=== PATIENT | male | born 1990 | race Caucasian/White ===

== ENCOUNTER 2022-10-23 19:14 | Emergency (ER) | payer OTHER, SELFPAY ==
[2022-10-23 19:31] VITALS: BP 154/79; PULSE 106; RESP 20; TEMP 36.9; O2SAT 98; BMI 29.0
--- NOTE | 2022-10-23 19:33 | ED_ITS ---
HPI - Back Pain/Injury General Chief Complaint: Back Pain/Injury Stated Complaint: Anterior Wedge? Time Seen by Provider: 10/23/22 19:41 Source: patient Mode of arrival: ambulatory Limitations: no limitations History of Present Illness HPI Narrative: 31yo male healthy here back injury at work 4 days ago while working. Seen at 10/23 and had x-rays which was concerning for T11/T12 anterior wedge deformity. Given prescriptions flexeril, ibuprofen, voltaren which were sent to the pharmacy but patient did not pick them up and decided to come to the emergency department. Patient reports he was informed by the urgent care provider that he needs follow-up with Occupational Health and may need to have an MRI. Patient was also given a work note as well as referral for physical therapy. Patient reports pain in the lower back. No radiation pain. No numbness or tingling. No weakness in extremities. No bowel or bladder contact sprain of fevers or chills. Patient is ambulatory. Related Data Allergies Allergy/AdvReac Type Severity Reaction Status Date / Time No Known Allergies Allergy Verified 10/23/22 19:37 Review of Systems Review of Systems: Yes all other systems are reviewed and are negative Constitutional: Constitutional: Reports no additional constitutional complaints, Denies body ache(s), Denies chills, Denies fever(s), Denies headache(s) and Denies weakness Eyes: Eyes: Reports no additional eye complaints and Denies change in vision ENT: Reports system reviewed and no additional complaints, except as docume nted, Denies dizziness, Denies headache(s), Denies nasal congestion, Denies nasal discharge and Denies neck pain Cardiovascular: Cardiovascular: Reports no additional cardiovascular complaints, Denies chest pain, Denies leg edema and Denies dyspnea Respiratory: Respiratory: Reports no additional respiratory complaints, Denies cough and Denies dyspnea Gastrointestinal: Gastrointestinal: Reports no additional gastrointestinal complaints, Denies abdominal pain, Denies diarrhea, Denies nausea and Denies vomiting Genitourinary: Genitourinary: Denies urinary incontinence Musculoskeletal: Musculoskeletal: Reports no additional musculoskeletal complaints, Reports back pain, Denies arthralgias, Denies joint swelling, Denies neck pain, Denies numbness and Denies tingling Integumentary/Breasts: Skin/Breast: Reports system reviewed and no additional complaints, except as docu and Denies rash Neurologic: Reports system reviewed and no additional complaints, except as documented, Denies Abnormal speech present, Denies dizziness, Denies headache (s), Denies numbness, Denies tingling and Denies weakness PMFSH Past Medical History Attestation statement: The following information was validated with the patient. Source: old records reviewed and nursing notes reviewed Social History Social History Advance Directives: No Advance Directives Information Provided: Yes Physical Exam Vital Signs: Vital Signs: Last Vital Signs Temp 98.5 F 10/23/22 19:31 Pulse 106 H 10/23/22 19:31 Resp 20 10/23/22 19:31 BP 154/79 H 10/23/22 19:31 Pulse Ox 98 10/23/22 19:31 O2 Del Method 10/23/22 19:31 BMI result Body Mass Index 29.0 Const: General: cooperative, healthy appearing, comfortable and no acute distress Orientation/consciousness: patient oriented x3 Limitations: no limitations HEENT: Head: Yes normal to inspection Ears: hearing grossly normal bilaterally General nose exam: Normal external nose present Face and sinus: Yes normal facial exam Mouth: Normal oral and palatal mucosa present Throat: Yes posterior oropharynx normal Eyes: General: appearance normal, both eyes and all related structures Pupils: Equal, round and reactive pupils present Neck: Neck: Yes normal visual inspection Chest: Chest palpation & inspection: normal inspection of the chest Resp: Effort & Inspection: normal respiratory effort Auscultation: clear to auscultation bilaterally Cardio: Rate: regular rate Rhythm: regular rhythm Peripheral pulses: Peripheral pulses 2+ throughout GI: Inspection: Yes normal to inspection Palpation (GI): Soft to palpation and nontender Auscultation: normal bowel sounds Back/Spine/Pelvis: Thoracic/Lumbar Spine: thoracic and lumbar spine normal to inspection Skin: General skin exam: no rashes or lesions noted Neuro: General: patient oriented x3, no focal motor deficits and normal sensation to monofilament Cranial nerves: Yes Equal, round and reactive pupils present Cognition (Neuro): normal cognition Speech: No Abnormal speech present Gait exam (Neuro): Normal gait present Motor exam (neuro): 5/5 motor strength present throughout Extrem: General: Yes normal to inspection Medical Decision Making Medical Decision Making MDM Narrative: 31yo male healthy here back injury at work 4 days ago while working. Seen at 10/23 and had x-rays which was concerning for T11/T12 anterior wedge deformity. Given prescriptions flexeril, ibuprofen, voltaren which were sent to the pharmacy but patient did not pick them up and decided to come to the emergency department. No neurological deficits or red flag symptoms. Patient will need to follow-up with occupational health may need outpatient MRI. No findings to suggest emergent MRI. Patient was given Toradol IM in the emergency room. 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 Recommend he follow up outpatient with occupational health. Reviewed worrisome signs and symptoms when to return to the emergency room. Comfortable plan for discharge home. Differential Diagnosis Differential Diagnoses: The differential diagnosis associated with the presentation includes Low concern for cord compression, cauda equina with no focal neurological findings. 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
[2022-10-23] MEDS: Ketorolac Tromethamine 60 MG/2 ML VIAL IM (19:52)
== END 2022-10-23 19:55 | disposition home or self-care (01) ==
PROVIDERS: Emergency Provider Emergency Medicine
DX: S39.012A Strain of muscle, fascia and tendon of lower back, initial encounter (principal); X58.XXXA Exposure to other specified factors, initial encounter; Y93.9 Activity, unspecified; Y92.9 Unspecified place or not applicable; Y99.0 Civilian activity done for income or pay
CPT/HCPCS: 96372; 99283; 99284; J1885

== ENCOUNTER 2024-02-25 16:49 | Emergency (ER) | payer MEDICAID, SELFPAY ==
--- NOTE | ~2024-02-25 | XR_ITS ---
EXAMINATION: XR FINGER, LEFT CLINICAL INFORMATION: Lawnmower blade cut across tip of the third digit. COMPARISON: None available. TECHNIQUE: 3 radiographs of the third digit of the left hand. XR/XR finger LT min 2V FINDINGS / IMPRESSION: There is a nondisplaced fracture involving the tuft of the distal phalanx of the third digit. The overlying soft tissue is swollen. No radiopaque foreign object is identified within the soft tissue. No additional fracture.
[2024-02-25 16:52] VITALS: BP 146/102; PULSE 92; RESP 16; TEMP 36.7; O2SAT 97; BMI 39.3
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
[2024-02-25] MEDS: Diphth,Pertus(ACell),Tet Adult 0.5 ML SYRINGE IM (20:32)
[2024-02-25] MEDS: BUPivacaine MPF 0.5 % 10 ML VIAL INFILTRATI (21:04)
[2024-02-25] MEDS: cephALEXin 500 MG CAPSULE 1000 MG PO (21:04)
[2024-02-25 21:54] VITALS: BP 135/87; PULSE 87; RESP 16; TEMP 36.6; O2SAT 97
[2024-02-25 21:56] VITALS: BP 135/87; PULSE 87; RESP 16; TEMP 36.6; O2SAT 97
== END 2024-02-25 21:57 | disposition home or self-care (01) ==
PROVIDERS: Emergency Provider Emergency Medicine
DX: S62.633B Displaced fracture of distal phalanx of left middle finger, initial encounter for open fracture (principal); W28.XXXA Contact with powered lawn mower, initial encounter; Y93.9 Activity, unspecified; Y92.9 Unspecified place or not applicable; Y99.9 Unspecified external cause status
CPT/HCPCS: 73140; 90471; 90715; 99284; J0665

== ENCOUNTER 2025-06-26 22:06 | Emergency (ER) | payer SELFPAY ==
--- NOTE | ~2025-06-26 | XR_ITS ---
CLINICAL HISTORY: cough, fever r o pna 1 view chest x-ray Comparison: None provided Findings: No consolidation or effusion. Normal size heart. No acute fracture. IMPRESSION: 1. No acute findings. This document has been electronically signed by: Kecia Montero MD on 06/27/2025 01:45:37
[2025-06-26 22:11] VITALS: BP 151/86; PULSE 95; RESP 18; TEMP 37; O2SAT 98; BMI 38.6
[2025-06-26 22:38] LABS: MANUAL DIFF FLAG NO
[2025-06-26 22:40] LABS: Hematocrit 43.7 % (42.0-52.0); Hemoglobin 15.6 g/dl (14.0-18.0); Imm Gran Abs Auto 0.04 X10*3/uL (0.00-0.03); Imm Gran Pct Auto 0.6 % (0.0-0.4); Lymphocytes Absolute Auto 2.3 X10*3/uL (1.2-4.9); Mean Corpuscular HGB Conc 35.7 g/dl (31.0-36.0); Mean Corpuscular Hemoglobin 29.7 pg (27.0-33.0); Mean Corpuscular Volume 83.2 fL (80.0-98.0); NRBC Abs Auto 0.000 X10*3/uL (0.0-0.012); NRBC Pct Auto 0.0 /100WBC (0.0-0.2); Platelet Count 243 X10*3/uL (160-400); Red Blood Count 5.25 X10*6/uL (4.60-5.80); White Blood Count 6.9 X10*3/uL (4.8-10.8)
--- OUTSIDE RECORDS SUMMARY | 2025-06-26 22:48 | XMS_ITS | Clinical Summary ---
Author Organization [facility] Address [address] [place] [address] Phone Care Team Providers Care City Carrier Assistant Name Role Phone Physician, No Pcp Primary Care Provider Unavaila ble Allergies No known active allergies Social History Tobacco Use Types Packs/Day Years Used Date Smoking Tobacco: Never Smokeless Tobacco: Never Tobacco Cessation:Counseling Given: Not Answered Alcohol Use Standard Drinks/Week Comments Never 0 (1 standard drink = 0.6 oz pur e alcohol) Sex and Gender Information Value Date Recorded Sex Assigned at Male 11/24/2024 7:44 PM EST Legal Sex Male 5:41 AM EST Gender Identity Male 11/24/2024 7:44 PM EST Sexual Orientation Straight 11/24/2024 7: 44 PM EST Obstetrics History Last Filed Vital Signs Vital Sign Reading Time Taken Comments Blood Pressure 134/86 11/24/2024 11:29 PM EST Pulse 93 11/24/2024 11:29 PM EST Temperature 36.7 C (98.1 F) 11/24/2024 11:29 PM EST Respiratory Rate 18 11/24/2024 11:29 PM EST Oxygen Saturation 98% 11/24/2024 11:29 PM EST Inhaled Oxygen Concentration - - Weight 95.3 kg (210 lb) 11/24/2024 6:40 PM EST Height 162.6 cm (5' 4 ) 11/24/2024 6:40 PM EST Body Mass Index 36.05 11/24/2024 6:40 PM EST Plan of Treatment Health Maintenance Due Date Last Done Comments Hepatitis B Vaccines (1 of 3 - 19+ 3-dose series) 2010 DTaP,Tdap,and Td Vaccines (8 - Td or Tdap) 04/25/2021 04/25/2011, 07/10/2003, 04/23/2003, Additional history exists HIV Screening 10/15/2022 Hepatitis C Screening 10/15/2022 Social Influencers of Health Screening 10/15/2022 COVID-19 Vaccine ( season) 2024 Depression Screening 11/12/2024 Influenza Vaccine (#1) 2025 HIB Vaccines Completed 03/16/1993, 08/13, 07/07/1992, Additional history exists IPV Vaccines Completed 03/20/1996, 03/1993, 07/07/1992, Additional history exists Meningococcal ACWY Vaccine Aged Out 11/15/2007 N o longer eligible based on patient's age to complete this topic HPV Vaccines Aged Out No longer eligi ble based on patient's age to complete this topic Hepatitis A Vaccines Aged Out No long er eligible based on patient's age to complete this topic MMR Vaccines Aged Out No longer eligi ble based on patient's age to complete this topic Meningococcal B Vaccine Aged Out No l onger eligible based on patient's age to complete this topic Pneumococcal Vaccine: Pediatrics (0 to 5 Years) and At-Risk Patients (6 to 49 Years) Aged Out No longer eligible based on patient's age to complete this topic RSV Immunization Patients Under 20 months Aged Out No longer eligible based on patient's age to complete this topic Varicella Vaccines Aged Out No longer eligible based on patient's age to complete this topic Insurance MEDICAID - [place] Care Teams City Carrier Assistant Relationship Specialty Start Date End Date Physician, No Pcp PCP - General 11/24/24
--- OUTSIDE RECORDS SUMMARY | 2025-06-26 22:48 | XMS_ITS | Clinical Summary ---
Author Organization [employer] Address [address] [place] [address] Care Team Providers Care Clinical Radiologist Name Role Phone Unavailable Primary Care Provider Unavailabl e Social History Tobacco Use Types Packs/Day Years Used Date Smoking Tobacco: Never Assessed Sex and Gender Information Value Date Recorded Sex Assigned at Not on file Legal Sex Male 12:00 PM EDT Gender Identity Not on file Sexual Orientation Not on file Plan of Treatment Health Maintenance Due Date Last Done Comments Depression Screening 1991 HIV Screening 1991 SDOH Screening 1991 Disability Screening 1991 Alcohol/Substance Use Screening 2003 Tobacco Screening 2003 Family Planning (PISQ) 2006 HPV Vaccines (1 - Male 3-dos e series) 2006 Hepatitis C Screening 2009 DTaP/Tdap/Td Vaccines (1 - Tdap) 2010 Hepatitis B Vaccines (1 of 3 - 19+ 3-dose series) 2010 COVID-19 Vaccine (1 - 2023-2 5 season) 2024 Influenza Vaccine (#1) 2025 Zoster Vaccines (1 of 2) 2041 RSV Patients and Pa tients Aged 60 years or older (1 - 1-dose 75+ series) 2066 HIB Vaccines Aged Out No longer eligi ble based on patient's age to complete this topic Hepatitis A Vaccines Aged Out No long er eligible based on patient's age to complete this topic IPV Vaccines Aged Out No longer eligi ble based on patient's age to complete this topic Meningococcal B Vaccine Aged Out No l onger eligible based on patient's age to complete this topic Meningococcal Vaccine Aged Out No humble buck eligible based on patient's age to complete this topic Pneumococcal Vaccine: Pediat rics (0 to 5 Years) and At-Risk Patients (6 to 49) Years Aged Out No longer eligible b ased on patient's age to complete this topic RSV under 20 months Aged Out No longe r eligible based on patient's age to complete this topic Rotavirus Vaccines Aged Out No longer eligible based on patient's age to complete this topic Insurance [facility] C3
[2025-06-26 22:53] LABS: Alanine Aminotransferase 71 U/L (0-40); Albumin Level 4.6 g/dL (3.5-5.0); Alkaline Phosphatase 82 U/L (39-117); Anion Gap 12 (12-20); Aspartate Amino Transferase 41 U/L (5-37); Blood Urea Nitrogen 15 mg/dL (9-16); Calcium 9.5 mg/dL (8.4-10.2); Carbon Dioxide 26 mmol/L (22-29); Chloride 104 mmol/L (96-108); Creatinine Clr Calc Pharmacy 99.5; Estimated Glomerular Filt Rate > 60; Potassium 4.2 mmol/L (3.3-5.1); Sodium 138 mmol/L (135-145); Total Protein 7.7 g/dL (6.5-8.0)
[2025-06-26 23:17] LABS: Resp Syncy Virus RNA Qual PCR NEGATIVE (Negative); SARS COV2 PCR INHOUSE NEGATIVE (Negative)
--- NOTE | 2025-06-27 00:31 | ED.URI ---
HPI - URI/Sore Throat General Chief Complaint: Upper Respiratory Symptoms Stated Complaint: cough, chills Time Seen by Provider: 06/27/25 00:23 Source: patient Mode of arrival: ambulatory Limitations: no limitations History of Present Illness ED Provider: Dr. Savannah Phelan HPI Narrative: Patient comes to the emergency room complaining of cough, shortness of breath or couple of days, lung burning sensation with inspiration. Patient reports a fever of 101 yesterday at home. Patient reports that his family at home and kids have the same URI symptoms. Patient denies nausea vomiting or diarrhea. Denies any wheezing, denies history of COPD or smoking. Related Data Previous Rx's ?Medication ?Instructions ?Recorded amoxicillin 875 mg-potassium 1 tab PO BID #14 tabs 02/25/24 clavulanate 125 mg tablet Allergies Allergy/AdvReac Type Severity Reaction Status Date / Time No Known Allergies Allergy Verified 06/26/25 22:13 Review of Systems Review of Systems: Constitutional : No Weight loss, No Fever, No Chills, No Night Sweats, No Fatigue, No Malaise ENT/Mouth : No Hearing loss, No Ear Pain, No Nasal Congestion, No Sinus Pain, No Hoarseness, No sore throat, No Rhinorrhea, No Swallowing Difficulty Eyes: No Eye Pain, No Swelling, No Redness, No Foreign Body, No Discharge, No Vision Changes Cardiovascular : No Chest Pain, No SOB, No Dyspnea on Exertion, No Orthopnea, No Edema, No Palpitations Respiratory : Complaining of productive cough, no wheezing, complaining of pain with deep inspiration, burning sensation in both lungs. Gastrointestinal : No Nausea, No Vomiting, No Diarrhea, No Constipation, No abdominal Pain, No Hematochezia, No Melena Genitourinary : no irregular bleeding, No Dysuria, No Urinary Frequency, No Hematuria, No Urinary Incontinence, No Urgency, No Flank Pain, No Urinary Flow Changes, No Hesitancy Musculoskeletal : No joint pain, No Myalgias, No Joint Swelling Skin : No Skin Lesions, No rash Neuro : No Weakness, No Numbness, No Paresthesias, No Loss of Consciousness, No Dizziness, No Headache Psych : No Anxiety/Panic, No Depression, No SI/HI/AH/VH, No Social Issues, Heme/Lymph: No Bruising, No Bleeding,No Lymphadenopathy Endocrine : No Polyuria, No Polydipsia, No Temperature Intolerance PMFSH Social History Social History Advance Directives: No Advance Directives Information Provided: No Physical Exam Exam: Exam: Appearance: Alert. Oriented X3. No acute distress. Eyes: Pupils equal, round and reactive to light. ENT: Pharynx normal. Neck: Normal inspection. Neck supple. No lymph nodes noted. No crepitus CVS: Normal heart rate and rhythm. Pulses normal. Normal S1 and S2 Respiratory: No respiratory distress. Breath sounds normal. No Wheezing. No rales Abdomen: Soft and nontender. No rigidity. No distention. Skin: Skin warm and dry. Normal skin color. Normal skin turgor. Extremities: No lower extremity edema. No Lacerations. No Rash Neuro: Oriented X 3. No motor deficit. No sensory deficit. Moving all extremities. No slurred speech. CN 2 through 12 grossly intact Psych: calm, cooperative, normal affect Vital Signs: Vital Signs: Last Vital Signs Temp 98.6 F 06/26/25 22:11 Pulse 95 06/26/25 22:11 Resp 18 06/26/25 22:11 BP 151/86 H 06/26/25 22:11 Pulse Ox 98 06/26/25 22:11 O2 Del Method Room Air 06/26/25 22:11 BMI result Body Mass Index 38.6 Course Course Course Narrative: Vehicle exam, patient's lungs sound completely clear, oxygen saturation in the high 90s with oxygen desaturation. Labs and x-ray pending Medical Decision Making Medical Decision Making [facility] Narrative: My interpretation of labs, significant abnormality for hematology, chemistry, LFTs serology negative for influenza COVID and RSV. Pending: Chest x-ray X-ray was ordered, but patient is refusing x-ray, requesting to be discharged Differential Diagnosis Differential Diagnoses: The differential diagnosis associated with the presentation includes (Influenza, COVID, RSV, viral URI) Lab Data [facility] Lab Attestation statement: I reviewed the patient's lab results. 06/26/25 22:31 06/26/25 22:31 Labs: Lab Results 06/26/25 Range/Units 22:31 WBC 6.9 (4.8-10.8) X10*3/uL RBC 5.25 (4.60-5.80) X10*6/uL Hgb 15.6 (14.0-18.0) g/dl Hct 43.7 (42.0-52.0) % MCV 83.2 (80.0-98.0) fL MCH 29.7 (27.0-33.0) pg MCHC 35.7 (31.0-36.0) g/dl RDW 12.1 (11.0-16.0) % Plt Count 243 (160-400) X10*3/uL MPV 9.8 (9.4-12.4) fL Immature Gran % (Auto) 0.6 H (0.0-0.4) % Neut % (Auto) 49.5 (45-73) % Lymph % (Auto) 33.1 (20-40) % [place] % (Auto) 12.3 H (2-11) % Eos % (Auto) 3.6 (0-4) % Baso % (Auto) 0.9 (0-2) % Lymph # (Auto) 2.3 (1.2-4.9) X10*3/uL [place] # (Auto) 0.9 (0.1-1.2) X10*3/uL Eos # (Auto) 0.3 (0.0-0.4) X10*3/uL Baso # (Auto) 0.1 (0.0-0.2) X10*3/uL Abs Immat Gran (auto) 0.04 H (0.00-0.03) X10*3/uL Absolute Neuts (auto) 3.4 (2.0-8.3) x10*3/uL Absolute Nucleated RBC 0.000 (0.0-0.012) X10*3/uL Nucleated RBC % (auto) 0.0 (0.0-0.2) /100WBC Sodium 138 (135-145) mmol/L Potassium 4.2 (3.3-5.1) mmol/L Chloride 104 (96-108) mmol/L Carbon Dioxide 26 (22-29) mmol/L Anion Gap 12 (12-20) BUN 15 (9-16) mg/dL Creatinine 1.10 (0.5-1.4) mg/dL Estim Creat Clear Calc 99.5 Estimated GFR > 60 Random Glucose 109 (60-115) mg/dL Lactic Acid 1.1 (0.5-2.0) mmol/L Calcium 9.5 (8.4-10.2) mg/dL Total Bilirubin 0.6 (0.0-1.0) mg/dL AST 41 H (5-37) U/L ALT 71 H (0-40) U/L Alkaline Phosphatase 82 (39-117) U/L Total Protein 7.7 (6.5-8.0) g/dL Albumin 4.6 (3.5-5.0) g/dL Influenza Type A (PCR) NEGATIVE (Negative) Influenza Type B (PCR) NEGATIVE (Negative) RSV RNA Qual (PCR) NEGATIVE (Negative) SARS-CoV-2 RNA (RT-PCR) NEGATIVE (Negative) Discharge Plan Discharge Clinical Impression: Viral URI Patient Disposition: Home, Self-Care Instructions: Upper Respiratory Infection (ED) Additional Instructions: You refused a chest x-ray, pneumonia can not be ruled out. Please follow-up with your primary care physician tomorrow. If you have any worsening or new symptoms, please return to the emergency room or call 911 Prescriptions: No Action amoxicillin-pot clavulanate 875-125 mg tablet 1 tab PO BID Qty: 14 0RF Print Language: Sinhala
[2025-06-27 03:19] VITALS: BP 151/86; PULSE 95; RESP 18; TEMP 37; O2SAT 98
== END 2025-06-27 03:20 | disposition home or self-care (01) ==
PROVIDERS: Emergency Provider Emergency Medicine
DX: J06.9 Acute upper respiratory infection, unspecified (principal); R05.9 Cough, unspecified; R06.02 Shortness of breath; R50.9 Fever, unspecified; Z03.818 Encounter for observation for suspected exposure to other biological agents ruled out
CPT/HCPCS: 71045; 80053; 83605; 85025; 87637; 99282; 99283

== ENCOUNTER → 2025-06-27 00:27 | Outpatient (BNV) | payer MEDICAID, SELFPAY | PROVIDERS: Emergency Provider Emergency Medicine; Visit Provider Radiology Diagnostic Radiology | DX: R05.9 Cough, unspecified (principal) | CPT/HCPCS: 71045 ==